=== PATIENT | male | born 1950 | race Caucasian/White ===

== ENCOUNTER 2019-01-28 01:36 | Emergency (ER) | payer BC, MEDICARE ==
[2019-01-28] MEDS ORDERED: NORMAL SALINE 1000 ML 1,000 ML IV ONE (01:49)
--- NOTE | 2019-01-28 01:51 | ER Document Report ---
ED General - General Stated Complaint: DIZZY/VOMITING Time Seen by Provider: 01/28/19 01:49 Primary Care Provider: STANLEY MORILLO MD [NO LOCAL MD] - Follow up in 3-5 days MARIFER JAIMES DO [ASSOCIATE] - Follow up in 3-5 days Notes: Patient is a 68-year-old male that presents to the emergency department for chief complaint of vertigo, dizziness. Patient states that starting this past Monday he has been having symptoms of vertigo, with room spinning, that have been mild in degree, only lasting a few moments, and seem to be triggered by hea d turning. He had 1 of these episodes again early this morning, where he was turning in bed, and when he open his eyes, he felt very dizzy, nauseous and did have one episode of vomiting. At this point he called EMS and they brought him to the emergency department, in route he was given Zofran, Phenergan and Benadryl, and at this time he just feels tired, and his symptoms of vertigo have completely resolved. He states he has been dealing with sinus congestion, and some ear ringing and fluid in his right ear recently as well. He denies having any fevers, chills, night sweats, chest pain, shortness of breath, difficulty breathing associated with this. Past Medical History: CHF, afib, htn, hld, cad Past Surgical History: pacemaker/defibrillator Social History: denies current tobacco, etoh, or drug use. Family History: Reviewed and noncontributory for presenting illness Allergies: Reviewed, see documented allergy list. REVIEW OF SYSTEMS: Other than noted above, the 12 point review of systems was reviewed with the patient and were negative, all pertinent findings are included in the HPI. PHYSICAL EXAMINATION: Vital signs reviewed, nursing noted reviewed. GENERAL: Elderly male, no acute distress HEAD: Atraumatic, normocephalic. EYES: Eyes appear normal, extraocular movements intact, sclera anicteric, conjunctiva are normal. ENT: nares patent, oropharynx clear without exudates. Moist mucous membranes. There is noted to be a serous middle ear effusion on the right, normal TM on the left. No erythema or bulging in either ear. NECK: Normal range of motion, supple without lymphadenopathy LUNGS: Breath sounds clear to auscultation bilaterally and equal. No wheezes rales or rhonchi. HEART: Regular rate and rhythm without murmurs ABDOMEN: Soft, nontender, normoactive bowel sounds. No rebound, guarding, or rigidity. No masses appreciated. EXTREMITIES: Nontender, good range of motion, no pitting or edema. NEUROLOGICAL: No focal neurological deficits. Moves all extremities spontaneously Motor and sensory grossly intact on exam. Normal heel alcantara and [id number] testing. Patient was able to stand at the bedside, without feeling off balance. PSYCH: Normal mood, normal affect. SKIN: Warm, Dry, normal turgor, no rashes or lesions noted on exposed skin - Related Data Allergies/Adverse Reactions: morphine Allergy (Verified 01/28/19 02:20) Sulfa (Sulfonamide Antibiotics) Allergy (Verified 01/28/19 02:20) Past Medical History - Social History Smoking Status: Never Smoker Family History: Reviewed & Not Pertinent Physical Exam - Vital signs Vitals: Temp 97.6 F 01/28/19 01:37 Course - Re-evaluation Re-evalutation: Patient seen and examined vital signs reviewed. Laboratory data and/or imaging were ordered as appropriate for the patient's presenting symptoms and complaint, with consideration of any critical or life threatening conditions that may be associated with their obtained history and exam as noted above. Patient was treated with IV fluids, Phenergan, Benadryl and Zofran by EMS Results were reviewed when available and demonstrated unremarkable work-up, blood work seem to be at baseline, or was normal, CT of the head was negative, chest x-ray negative for acute process The patient was re-evaluated and was stable, was able to stand at bedside without difficulty and did not feel off balance. Given the patient's been having congestion, does have an ear infusion, and this occurred with head turning, and was relieved with medication, it does seem most consistent with benign paroxysmal positional vertigo, less likely to be central vertigo, as this was sudden onset, as opposed to gradual in onset, patient does have atrial fibrillation, but is on anticoagulation, therefore lowering his risk of CVA, this patient's symptoms are completely resolved at this time, I do feel he can be discharged home, given prescription for meclizine, and advised follow-up with ENT. Given the patient's been having tinnitus, is possible he is developing Mnire's as well, which should also be evaluated by ENT. Evaluation was most consistent with vertigo Results were discussed with the patient at this point, after careful consideration I feel that that patient can be discharged from the emergency department, the patient was educated treatments and reasons to return to the emergency department based on their presumed diagnosis as noted above, they were advised to followup with a primary care physician in 2-3 days. Patient was agreeable to plan of care. *Note is created using voice recognition software and may contain spelling, syntax or grammatical errors. Laboratory 01/28/19 01/28/19 01/28/19 02:10 02:10 02:10 WBC 6.1 RBC 4.62 Hgb 13.9 Hct 40.9 MCV 89 MCH 30.0 MCHC 33.9 RDW 13.1 Plt Count 129 L Seg Neutrophils % 37.9 L Lymphocytes % 47.8 H Monocytes % 12.0 Eosinophils % 1.7 Basophils % 0.6 Absolute Neutrophils 2.3 Absolute Lymphocytes 2.9 Absolute Monocytes 0.7 Absolute Eosinophils 0.1 Absolute Basophils 0.0 Sodium 140.0 Potassium 4.1 Chloride 104 Carbon Dioxide 23 Anion Gap 13 BUN 25 H Creatinine 1.02 Est GFR ( Amer) > 60 Est GFR (Non-Af Amer) > 60 Glucose 259 H Calcium 9.0 Total Bilirubin 0.7 Direct Bilirubin 0.3 Neonat Total Bilirubin Not Reportable Neonat Direct Bilirubin Not Reportable Neonat Indirect Bili Not Reportable AST 29 ALT 45 Alkaline Phosphatase 57 Troponin I < 0.012 Total Protein 6.9 Albumin 4.3 Urine Color Urine Appearance Urine pH Ur Specific [place] Urine Protein Urine Glucose (UA) Urine Ketones Urine Blood Urine Nitrite Urine Bilirubin Urine Urobilinogen Ur Leukocyte Esterase Urine WBC (Auto) Urine Ascorbic Acid 01/28/19 03:50 WBC RBC Hgb Hct MCV MCH MCHC RDW Plt Count Seg Neutrophils % Lymphocytes % Monocytes % Eosinophils % Basophils % Absolute Neutrophils Absolute Lymphocytes Absolute Monocytes Absolute Eosinophils Absolute Basophils Sodium Potassium Chloride Carbon Dioxide Anion Gap BUN Creatinine Est GFR ( Amer) Est GFR (Non-Af Amer) Glucose Calcium Total Bilirubin Direct Bilirubin Neonat Total Bilirubin Neonat Direct Bilirubin Neonat Indirect Bili AST ALT Alkaline Phosphatase Troponin I Total Protein Albumin Urine Color YELLOW Urine Appearance CLEAR Urine pH 5.0 Ur Specific [place] 1.017 Urine Protein NEGATIVE Urine Glucose (UA) >=500 H Urine Ketones NEGATIVE Urine Blood NEGATIVE Urine Nitrite NEGATIVE Urine Bilirubin NEGATIVE Urine Urobilinogen NEGATIVE Ur Leukocyte Esterase NEGATIVE Urine WBC (Auto) 0 Urine Ascorbic Acid NEGATIVE Head CT 01/28/19 01:49 IMPRESSION: No acute intracranial abnormality TECHNICAL DOCUMENTATION: Quality ID # 436: Final reports with documentation of one or more dose reduction techniques (e.g., Automated exposure control, adjustment of the mA and/or kV according to patient size, use of iterative reconstruction technique) copyright 2010 [employer]- All Rights Reserved Chest X-Ray 01/28/19 01:57 IMPRESSION: Cardiomegaly. Lungs are clear copyright 2010 [employer]- All Rights Reserved - Vital Signs Vital signs: Temp Pulse Resp BP Pulse Ox 97.8 F 15 124/66 96 01/28/19 03:55 01/28/19 03:53 01/28/19 03:53 01/28/19 03:53 - Laboratory Result Diagrams: 01/28/19 02:10 01/28/19 02:10 Laboratory results interpreted by me: 01/28/19 01/28/19 01/28/19 02:10 02:10 03:50 Plt Count 129 L Seg Neutrophils % 37.9 L Lymphocytes % 47.8 H BUN 25 H Glucose 259 H Urine Glucose (UA) >=500 H - EKG Interpretation by Me Additional EKG results interpreted by me: EKG demonstrates paced rhythm with a ventricular rate of 72 bpm, right axis deviation, QTC 565 ms, T wave inversions noted in leads aVL and V2, no ST elevation., No prior for comparison at this time. Discharge - Discharge Clinical Impression: Vertigo Condition: Stable Disposition: HOME, SELF-CARE Instructions: Vertigo ([facility]) Additional Instructions: If you develop any worsening symptoms, or they are not improving with medication at home, do not hesitate to return to the emergency department, I recommend that you follow-up with your nose and throat as well. Prescriptions: RX: Meclizine HCl [Motion Sickness Relief] 25 mg PO Q8H PRN #12 tablet PRN Reason: Dizziness Referrals: STANLEY MORILLO MD [NO LOCAL MD] - Follow up in 3-5 days MARIFER JAIMES DO [ASSOCIATE] - Follow up in 3-5 days
[2019-01-28 02:54] LABS: ABSOLUTE EOSINOPHILS # (AUTO) 0.1 10^3/uL (0.0-0.6); ABSOLUTE LYMPHOCYTES (AUTO) 2.9 10^3/uL (0.5-4.7); ABSOLUTE MONOCYTES (AUTO) 0.7 10^3/uL (0.1-1.4); ABSOLUTE NEUT (AUTO) 2.3 10^3/uL (1.7-8.2); BASOPHILS % (AUTO) 0.6 % (0-2); EOSINOPHILS % (AUTO) 1.7 % (0-6); HEMATOCRIT 40.9 % (37.9-51.0); HEMOGLOBIN 13.9 g/dL (13.5-17.0); LYMPHOCYTES % (AUTO) 47.8 % (13-45); MEAN CORPUSCULAR HGB CONC 33.9 g/dL (32.0-36.0); MEAN CORPUSCULAR VOLUME 89 fl (80-97); PLATELET COUNT 129 10^3/uL (150-450); RED BLOOD COUNT 4.62 10^6/uL (4.35-5.55); RED CELL DISTRIBUTION WIDTH 13.1 % (11.5-14.0); SEGMENTED NEUTROPHILS % (AUTO) 37.9 % (42-78); TOTAL CELLS COUNTED % (AUTO) 100 %; WHITE BLOOD COUNT 6.1 10^3/uL (4.0-10.5)
[2019-01-28 03:08] LABS: ALANINE AMINOTRANSFERASE 45 U/L (21-72); ALBUMIN 4.3 g/dL (3.5-5.0); ALKALINE PHOSPHATASE 57 U/L (38-126); ANION GAP 13 (5-19); ASPARTATE AMINO TRANSFERASE 29 U/L (17-59); BILIRUBIN,DIRECT 0.3 mg/dL (0.0-0.4); BILIRUBIN,TOTAL 0.7 mg/dL (0.2-1.3); BLOOD UREA NITROGEN 25 mg/dL (7-20); CARBON DIOXIDE 23 mmol/L (22-30); CHLORIDE 104 mmol/L (98-107); GLUCOSE 259 mg/dL (75-110); POTASSIUM 4.1 mmol/L (3.6-5.0); TOTAL PROTEIN 6.9 g/dL (6.3-8.2)
--- NOTE | 2019-01-28 03:19 | RADIOLOGY REPORT (SQ) ---
EXAM DESCRIPTION: CT HEAD WITHOUT IV CONTRAST COMPLETED DATE/TME: 01/28/2019 01:49 CLINICAL HISTORY: 68 years, Male, dizziness COMPARISON: None. TECHNIQUE: 199 Images stored on PACS. All CT scanners at this facility use dose modulation, iterative reconstruction, and/or weight based dosing when appropriate to reduce radiation dose to as low as reasonably achievable (ALARA). [facility]: Dose Right [facility]: CareDose [facility]: Dose Right [facility]: Teradose 4D [facility]: [employer] LIMITATIONS: None. FINDINGS: The globes are intact. The paranasal sinuses and mastoid air cells are unremarkable. No displaced or depressed skull fracture. No intra or extra-axial hemorrhage. CT is limited for evaluation of acute infarct. No CT evidence for large or territorial acute infarct. No mass or midline shift IMPRESSION: No acute intracranial abnormality TECHNICAL DOCUMENTATION: Quality ID # 436: Final reports with documentation of one or more dose reduction techniques (e.g., Automated exposure control, adjustment of the mA and/or kV according to patient size, use of iterative reconstruction technique) copyright 2011 [employer]- All Rights Reserved
--- NOTE | 2019-01-28 03:26 | RADIOLOGY REPORT (SQ) ---
EXAM DESCRIPTION: XR CHEST 1 VIEW COMPLETED DATE/TME: 01/28/2019 01:57 CLINICAL HISTORY: 68 years, Male, dizziness COMPARISON: None. NUMBER OF VIEWS: 1 TECHNIQUE: Portable chest LIMITATIONS: None. FINDINGS: Cardiomegaly. Left-sided pacing device. Osteopenia. Lungs clear. No pneumothorax IMPRESSION: Cardiomegaly. Lungs are clear copyright 2011 [employer] (by [email or web address])- All Rights Reserved
[2019-01-28 03:55] VITALS: BP 124/66
[2019-01-28 04:21] LABS: APPEARANCE,URINE CLEAR; BILIRUBIN,URINE NEGATIVE (NEGATIVE); COLOR,URINE YELLOW; GLUCOSE, URINE >=500 mg/dL (NEGATIVE); KETONES,URINE NEGATIVE (NEGATIVE); LEUKOCYTE ESTERASE,URINE NEGATIVE (NEGATIVE); NITRITE,URINE NEGATIVE (NEGATIVE); PROTEIN,URINE NEGATIVE (NEGATIVE); URINE SPECIFIC GRAVITY 1.017; UROBILINOGEN,URINE NEGATIVE mg/dL (<2.0)
--- NOTE | 2019-01-29 00:40 | EKG REPORT ---
SEVERITY:- ABNORMAL ECG - A-V DUAL-PACED RHYTHM WITH SOME INHIBITION RIGHT BUNDLE BRANCH BLOCK : Confirmed by: Henry Gongora 29-Jan-2019 00:39:06
== END 2019-01-28 04:05 | disposition home or self-care (01) ==
LOC: ER 01:36
DX: R42 Dizziness and giddiness (principal); R11.10 Vomiting, unspecified; I50.9 Heart failure, unspecified; I48.91 Unspecified atrial fibrillation; I11.0 Hypertensive heart disease with heart failure; Z88.6 Allergy status to analgesic agent; Z95.810 Presence of automatic (implantable) cardiac defibrillator; Z88.2 Allergy status to sulfonamides
CPT/HCPCS: 36415; 70450; 71045; 80053; 81001; 84484; 85025; 93005; 93010; 99285

== ENCOUNTER → 2019-11-12 | Outpatient (CLI) | payer MEDICARE, OTHER | LOC: OD 11:46 | PROVIDERS: ATTEND Otolaryngology | DX: J30.89 Other allergic rhinitis (principal) | CPT/HCPCS: 36415; 82785; 86003 ==